=== PATIENT | female | born 1950 | race Two or more races ===

== ENCOUNTER 2018-11-08 11:30 | Inpatient (IN) | payer OTHER ==
[~2018-11-08] VITALS: Ht 166.4 cm; Wt 111.1 kg
[2018-12-01] VITALS (10 sets, daily range): BP systolic 105–130; BP diastolic 52–73
[2018-12-01] MEDS ORDERED: Chloraseptic Spray 20mL Bottle ORAL PRN (07:15)
[2018-12-01] MEDS ORDERED: HYDROcodone/Acetamin 10/325 tab ORAL PRN (07:15)
[2018-12-01] MEDS ORDERED: Hydromorphone 0.5mg/0.5ml inj IVP PRN ×2 (07:15→11:30)
[2018-12-01] MEDS: BuPROPion SR 150mg tab ORAL SCH (09:00)
[2018-12-01] MEDS ORDERED: Thrombin 5000 units TOPIC ONE (09:57)
[2018-12-01] MEDS ORDERED: Bacitracin 50000 Units Vial ONE (09:57)
[2018-12-01] MEDS ORDERED: Bupivacaine w/Epi 0.5% 30ml Vial INJ ONE (09:57)
[2018-12-01] MEDS ORDERED: Heparin 5000 units/ml inj ONE (09:58)
[2018-12-01] MEDS ORDERED: Gelfoam Size TOPIC ONE (10:34)
[2018-12-01] MEDS ORDERED: PROZAC20 MG ORAL (10:36)
[2018-12-01] MEDS ORDERED: SYNTHROID112 MCG ORAL (10:36)
[2018-12-01] MEDS ORDERED: WELLBUTRIN XL150 M1 ORAL (10:36)
[2018-12-01] MEDS ORDERED: LR 1000ml 1,000 ML IVLG SCH (11:26)
[2018-12-01] MEDS ORDERED: Ketorolac 30mg Inj IV PRN ×2 (11:30)
[2018-12-01] MEDS ORDERED: HYDROcodone/Acetamin 7.5/325 tab ORAL PRN (11:30)
[2018-12-01] MEDS ORDERED: Acetaminophen (Non formulary) 100 ML IV ONE (11:30)
[2018-12-01] MEDS ORDERED: Midazolam 2mg/2ml Inj IVP PRN (11:30)
[2018-12-01] MEDS ORDERED: fentaNYL 100 mcg/2 mL IV PRN (11:30)
[2018-12-01] MEDS ORDERED: Atropine Sulfate 0.4mg/ml inj IVP PRN (11:30)
[2018-12-01] MEDS ORDERED: oxyCODONE HCL/Acetaminophen 5/325mg ORAL PRN (11:30)
[2018-12-01] MEDS ORDERED: DiphenhydrAMINE 50mg/ml Inj IVP PRN (11:30)
[2018-12-01] MEDS ORDERED: HYDROcodone/Acetamin 5/325 tab ORAL PRN (11:30)
[2018-12-01] MEDS ORDERED: LORazepam Inj 2mg/ml 1ml IV PRN (11:30)
--- NOTE | 2018-12-01 11:31 | Anethesia Preoperative Eval ---
Anesthesia Pre-op PMH/ROS General Date of Evaluation: Dec 01, 2018 Time of Evaluation: 11:41 Anesthesiologist: Tania ASA Score: ASA 3 Mallampati Score Class I : Soft palate, uvula, fauces, pillars visible Class II: Soft palate, uvula, fauces visible Class III: Soft palate, base of uvula visible Class IV: Only hard plate visible Mallampati Classification: Class II Surgeon: Lilia Diagnosis: Back Pain Surgical Procedure: ALIF L5-S1 Anesthesia History: none Family History: no anesthesia problems Allergies: Coded Allergies: No Known Allergies (Unverified , 12/01/18) Medications: see eMAR Patient NPO?: Yes NPO Date: Nov 30, 2018 NPO Time: 1900 Past Medical History Cardiovascular: Reports: HTN Neurologic/Psychiatric: Reports: depression/anxiety Endocrine: Reports: hypothyroidism Other: obesity - BMI 42 Anesthesia Pre-op Phys. Exam Physician Exam Last Vital Signs Date Time Temp Pulse Resp B/P (MAP) Pulse Ox O2 Delivery O2 Flow Rate FiO2 12/01/18 10:37 Room Air 12/01/18 10:31 97.4 71 18 130/73 (92) 98 Constitutional: NAD Neurologic: CN 2-12 intact Cardiovascular: RRR Respiratory: CTA Gastrointestinal: S/NT/ND Airway Exam Mallampati Score: Class II MO: full ROM: limited Teeth: missing, intact Anesthesia Pre-op A/P Risk Assessment & Plan Assessment: ASA 3 Plan: GA, SED, GlideScope Go Status Change Before Surgery: No Pre-Antibiotics Dru Grams Ancef IV Given Within 1 Hr of Incision: Yes Time Given: 12:01 Chris Marin MD Dec 01, 2018 11:30
[2018-12-01] MEDS ORDERED: Dexamethasone 4mg/ml vial ONE (11:32)
[2018-12-01] MEDS ORDERED: fentaNYL 100 mcg/2 mL IV ONE ×3 (11:32→14:29)
[2018-12-01] MEDS ORDERED: Lidocaine 1% MPF 10mg/ml 5ml ONE (11:32)
[2018-12-01] MEDS ORDERED: Sodium Chloride 10ml vial INJ ONE (11:32)
[2018-12-01] MEDS ORDERED: Lidocaine 1% Plain 30 ml INJ ONE ×2 (11:37→13:31)
[2018-12-01] MEDS ORDERED: Zemuron 50mg/5ml Inj IV ONE (11:41)
--- NOTE | 2018-12-01 11:44 | Pre-Procedure Note/Attestation ---
Pre-Procedure Note/Attestation Complete Prior to Procedure Planned Procedure: not applicable Procedure Narrative: L5/S1 Anterior Lumbar Interbody Fusion Indications for Procedure Pre-Operative Diagnosis: Back pain, Lower extremity radiculapathy, Disk herniation Attestation I attest that I discussed the nature of the procedure; its benefits; risks and complications; and alternatives (and the risks and benefits of such alternatives ), prior to the procedure, with the patient (or the patient's legal associate financial representative). I attest that, if there was a reasonable possibility of needing a blood transfusion, the patient (or the patient's legal associate financial representative) was given the [facility] standardized written summary, pursuant to the Jose Elaine Blood Safety Act ([place] Health and Safety Code # 1645, as amended). I attest that I re-evaluated the patient just prior to the surgery and that there has been no change in the patient's H&P, except as documented below: AN RIVERA M.D. Dec 01, 2018 11:44
[2018-12-01] MEDS ORDERED: Sterile Water Irrig 1000ml IRRIG ONE (12:00)
[2018-12-01] MEDS ORDERED: NS Irrig 1000ml ONE (12:00)
[2018-12-01] MEDS ORDERED: LR 1000ml ONE (12:00)
[2018-12-01] MEDS ORDERED: Propofol 1,000mg/ 100ml btl IV ONE (12:00)
--- NOTE | 2018-12-01 12:23 | Immediate Post-Op Evaluation ---
Immediate Post-Op Evalulation Immediate Post-Op Evalulation Procedure: ALIF L5-S1 Date of Evaluation: Dec 01, 2018 Time of Evaluation: 15:13 IV Fluids: 1000 LR Blood Products: 0 Estimated Blood Loss: 100 Urinary Output: 100 Blood Pressure Systolic: 111 Blood Pressure Diastolic: 59 Pulse Rate: 59 Respiratory Rate: 16 O2 Sat by Pulse Oximetry: 99 Temperature (Fahrenheit): 97.2 Pain Score (1-10): 2 Nausea: No Vomiting: No Complications 0 Patient Status: awake, reacts, patent, extubated, none Hydration Status: adequate Dru Grams Ancef IV Given Within 1 Hr of Incision: Yes Time Given: 12:01 Chris Marin MD Dec 01, 2018 12:23
[2018-12-01] MEDS ORDERED: Glycopyrrolate 0.2mg/ml 1ml Vial ONE (14:16)
[2018-12-01] MEDS ORDERED: Neostigmine 1mg/ml 10ml Inj ONE (14:16)
[2018-12-01] MEDS ORDERED: Bacitracin Oint 15gm Tube TOPIC ONE (14:27)
--- NOTE | 2018-12-01 14:41 | Brief Operative Note ---
Immediate Post Operative Note Operative Note Pre-op Diagnosis: Back pain, Lower extremity radiculapathy, Disk herniation Procedure: L5/S1 ALIF Post-op Diagnosis: same as pre-op Findings: consistent w/pre-op dx studies Surgeon: Lilia Deburrer Machine: Jacklyn Additional Surgeons: Perez Anesthesiologist: Tania Anesthesia: general Specimen: none Complications: none Condition: stable Fluids: see anesthesia Estimated Blood Loss: minimal Drains: none Packing: None Implant(s) used?: Yes - Renovis cage and screws AN RIVERA M.D. Dec 01, 2018 14:41
[2018-12-01] MEDS ORDERED: PCA HYDROmorphone 30mg/30ml Syr IV PRN (15:44)
[2018-12-01] MEDS ORDERED: Rate Change PCA 1 Each MISC PRN (15:45)
--- NOTE | 2018-12-01 15:46 | Diagnostic Imaging Report ---
INDICATION: Pain, intraoperative TECHNIQUE: Intraoperative imaging Fluoroscopy time: 28.7 seconds Total dose: 0.87308 mGym2 Total number of images: 3 COMPARISON: None FINDINGS: 6 intraoperative images demonstrate surgical tool projected anterior to what is presumably the L5 vertebral body. Subsequent images demonstrate placement of anterior fusion hardware and a disc spacer at L5-S1. IMPRESSION: Intraoperative imaging, as described
--- NOTE | 2018-12-01 16:22 | NUR ---
NURSE NOTES: Patient is in bed awake and able to verbalize needs. Stable. Denies pain or SOB. Surgical dressing clean, dry, and intact. Patient oriented to room, call light and unit. Patient encouraged to use call light for assistance, verbalized understanding. Patient is comfortable in bed in locked and lowest position with call light within reach. Will continue to monitor.
[2018-12-01] MEDS: Docusate 100mg cap ORAL SCH (18:00)
--- NOTE | 2018-12-01 18:00 | NUR ---
NURSE NOTES: Patient is asleep. Patient wants to continue sleeping. Held oral meds due to patient's drowsiness. Will continue to monitor.
[2018-12-01] MEDS: PCA shift volume MISC SCH (19:21)
--- NOTE | 2018-12-01 19:38 | NUR ---
HAND-OFF: Report given to Markus ARGUELLO. Patient is stable.
--- NOTE | 2018-12-01 19:40 | NUR ---
NURSE NOTES: Received a report from SAUNDRA Padilla. Pt is asleep but easily aroused by calling name. No acute distress noted. Denies pain at this time. On O2 2L/min NC. Surgical site is clear without any bleeding signs. Son catheter is inserted state and yellowish urine patent without hematuria or sediments. Reeudcate FRONT DESK SUPERVISOR pump usage. Leave call light within reach. Will continue to monitor.
[2018-12-01] MEDS: ceFAZolin sod 1 GM in D5W 55 ML IV SCH (20:17)
[2018-12-02] VITALS: BP 135/70
[2018-12-02] MEDS: ceFAZolin sod 1 GM in D5W 55 ML IV SCH ×2 (03:51→11:25)
[2018-12-02 04:00] VITALS: BP 130/61
[2018-12-02] MEDS: PCA shift volume MISC SCH ×2 (07:29→19:29)
--- NOTE | 2018-12-02 07:30 | NUR ---
HAND-OFF: Report given to SAUNDRA Welch.
[2018-12-02 08:00] VITALS: BP 116/49
--- NOTE | 2018-12-02 08:00 | NUR ---
NURSE NOTES: Received report from Markus ARGUELLO, pt a/a/o x4 laying in bed with no signs of distress or other issues at this time, surgical dressing dry and intact. Son cath in place draining well. per Dr. James to remove Son cath tomorrow 12/03/18 at 06:00. RN will carry on order. IV ont her left MAJOR gauge#18 running D5 1/2 NS +20mEq@100ml/hr and OFFBEARER with Dilaudid. pt is NPO except ice chips and meads. partner at bed side.call light within reach. bed in lowest position. side rales up x2. I will f/u as needed.
[2018-12-02] MEDS: BuPROPion SR 150mg tab ORAL SCH (09:04)
[2018-12-02] MEDS: Docusate 100mg cap ORAL SCH ×2 (09:04→17:29)
[2018-12-02] MEDS: Dronabinol 2.5mg Cap ORAL SCH ×2 (09:04→20:08)
--- NOTE | 2018-12-02 09:38 | 48 Hour Post Anesthesia Eval ---
Post Anesthesia Evaluation Procedure: ALIF L5-S1 Date of Evaluation: Dec 02, 2018 Time of Evaluation: 09:37 Blood Pressure Systolic: 132 0: 76 Pulse Rate: 68 Respiratory Rate: 20 Temperature (Fahrenheit): 97.6 O2 Sat by Pulse Oximetry: 98 Airway: patent Nausea: No Vomiting: No Pain Intensity: 3 Hydration Status: adequate Cardiopulmonary Status: stable Mental Status/LOC: patient returned to baseline Follow-up Care/Observations: n/a Post-Anesthesia Complications: none Follow-up care needed: N/A Ney Ramsey MD Dec 02, 2018 09:38
--- NOTE | 2018-12-02 11:00 | Progress Note ---
DATE: 12/02/2018 ACUTE PAIN MANAGEMENT PHYSICIAN PROGRESS NOTE MEDICATIONS: Medication administration record reviewed. Medications include Tylenol, Mylanta, Wellbutrin, Catapres, IV fluids, Benadryl, Colace, Pepcid, Prozac, [place], Dilaudid, Synthroid, Ativan, Dilaudid RADIOLOGY CT TECHNOLOGIST, Narcan, Zofran, and Chloraseptic spray. LABORATORY STUDIES: No interval laboratory studies. OBJECTIVE: Afebrile, pulse 88, respirations 20, blood pressure 130/61, and oxygen saturation 96% on nasal cannula oxygen. I spent over 60 minutes in consultation today. I discussed the case with the overnight nurse, RN, Markus, along with the day nurse, RN, Rebekah. I discussed the case with the surgeon, Dr. Rodrigues, and the physical therapist, Kylah. I saw the patient at the bedside with her , Florecita. The patient has been doing exceptionally well. She had absolutely no problems with breathing or respiratory compromise overnight. She has been using her Dilaudid RADIOLOGY CT TECHNOLOGIST adequately for adequate analgesia. She has been able to roll in the bed from [id number] while tolerating the pain. I did encourage her to be a little more generous with the RADIOLOGY CT TECHNOLOGIST button to make her first physical therapy session easier this morning. We spoke the patient's CBD usage and I have decided to place her on Marinol 2.5 mg every 12 hours at 9 a.m. and 9 p.m. for better baseline analgesia, as the patient does state that she used the tincture or vape multiple times throughout the day. I did provide the , Florecita, a prescription for 50 tablets of [place] 10/325. [place], which have been working well for the patient preoperatively. The patient states that Flexeril did not have much effect and the patient already has Flexeril at home in case she decides to re-challenge with the cyclobenzaprine muscle relaxant. I will continue the breakthrough p.r.n. dose of Dilaudid for rescue severe pain episodes. We still await improvement in her bowel function after ALIF, anterior abdominal surgery. She has minimal bowel sounds. She is not burping and certainly does not have flatus at this time. I would continue her IV fluids. I have 100 mL an hour. She has a Son catheter in place and the urine color is only mildly concentrated. I would be wary fluid overload in this morbidly obese 67-year-old woman at this time; so, I will not increase her IV fluid rate. The patient is using ice chips sporadically. Once the patient does start passing flatus, we will trial her on clear liquid diet for tolerability. The patient's , Florecita, is extremely helpful and supportive. They have already prepared their home for the patient's recovery. I spoke with the physical therapist to please leave a front wheeled walker at the bedside. So, the patient can ambulate with nursing staff once cleared by physical therapy. The patient and her have several large dogs and 2 grandchildren ages 3 and 5. I strongly encouraged the patient to be certain not to sleep with her dogs and not to lift greater than approximately 1 gallon of milk in terms of weight, to avoid injury to her recent spine fusion. I demonstrated proper use of incentive spirometer at the bedside to encourage good pulmonary toilet. The patient promises to be compliant. Sequential compression devices remain in place for DVT prophylaxis. We will see how the patient progresses with physical therapy and see how her bowel function returns. Dr. Rodrigues was already placed the patient on Colace b.i.d. She will remain on Pepcid b.i.d. for GI ulcer prophylaxis. Vasu Monge JOB#: [id number] CC:
[2018-12-02] MEDS ORDERED: Tubing IV Secondary IV ONE (11:06)
[2018-12-02 12:00] VITALS: BP 112/49
--- NOTE | 2018-12-02 13:26 | NUR ---
PT Notes: Eval lauren received. Performed eval. Patient was able to get in/oob and walk using FWW while wearing lumbar brace. c/o slight light headedness and returned safely to bed. Patient will benefit from skilled PT intervention to improve functional activities
[2018-12-02 16:00] VITALS: BP 108/57
--- NOTE | 2018-12-02 18:31 | Consultation ---
DATE OF CONSULTATION: 12/01/2018 CONSULTING PHYSICIAN: Rafy James M.D. REFERRING PHYSICIANS: 1. Fernando Rodrigues M.D. 2. Harry Villasenor M.D. REASON FOR CONSULTATION: Acute pain consult. HISTORY OF PRESENT ILLNESS: Dear Dr. Rodrigues and Dr. Villasenor, Thank you kindly for consulting me to evaluate and render an opinion as to how to proceed in the management of the patient's acute postoperative lumbar spine pain after her anterior lumbar spine fusion surgery today. The patient has injured her spine after a slip and fall accident. She failed conservative treatment and required anterior lumbar interbody fusion spine repair today. You consulted me to help with her postoperative management and pain control. I saw the patient at the bedside and performed a detailed history and physical examination. I discussed the case with the hospital pharmacist along with yourselves. I performed a detailed history and physical examination. I reviewed multiple records from the patient's hospital chart including multiple preoperative records from Dr. Rafy Deng dated October 23, 2018 along with diagnostic testing. I reviewed multiple records from today's date of surgery at [facility], December 01, 2018, including records from the surgery suite, the nursing and pharmacy departments. PAST MEDICAL HISTORY: 1. Acute postoperative lumbar spine pain, status post lumbar spine fusion surgery with Dr. Rodrigues in November 2018. 2. Slip and fall accident. 3. Morbid obesity. 4. Hypothyroidism. 5. Anxiety. 6. Ankle surgery. MEDICATIONS: At home, Synthroid 112 mcg daily, Wellbutrin 300 mg daily, Prozac 20 mg daily, and [place] 7.5 mg tablets half a tablet b.i.d. p.r.n. The patient has trialed Flexeril, which provided minimal benefit. SOCIAL HISTORY: The patient lives with her life, Pat. She denies tobacco usage. She denies alcohol usage. She does use a CBD tincture. REVIEW OF SYSTEMS: Per Dr. Rafy Deng. FAMILY HISTORY: Diabetes, hypertension, and hyperlipidemia. ALLERGIES: No known drug allergies. PHYSICAL EXAMINATION: VITAL SIGNS: Age 67, height 5 feet 5 inches, weight 247 pounds, body-mass index 40. Afebrile, pulse 73, respirations 13, blood pressure 127/62, and oxygen saturation 97%. HEENT: No Pitts's palsy. No Sally syndrome. Extraocular muscles intact. NECK: Thick neck. HEENT. CHEST: Barrel chested. Bibasilar crackles likely secondary to postoperative atelectasis and preoperative morbid obesity. HEART: Decreased heart sounds secondary to obesity. ABDOMEN: Absent bowel sounds, obese, tender by incision area. No rebound or guarding appreciated. NEUROLOGIC: Detailed neurologic and lumbar spine exam per Dr. Rodrigues. Moving all extremities x4. 5/5 dorsiflexion and 5/5 plantar flexion in bilateral lower extremities. GENITOURINARY: Son catheter in place. BREASTS: Deferred to Dr. Deng. GENITOURINARY: Deferred to Dr. Deng. DIAGNOSTIC TESTING: laboratory studies from October 23, 2018 with white count 11, hematocrit 40, platelets 310,000. Sodium 137, potassium 4.9, chloride 102, bicarbonate 27, glucose 83, BUN 13, creatinine 0.8, calcium 9.3. Total protein 7.3. Albumin 4.0. Total bilirubin 0.3. Alkaline phosphatase 52, ALT 15, AST 14. INR 0.9. Hepatitis B and C, and HIV are all negative. Urinalysis negative. Preoperative chest x-ray shows no acute cardiopulmonary disease dated October 23, 2018. A 12-lead EKG shows normal sinus rhythm, ventricular rate 68. No evidence for acute cardiac ischemia. Pulmonary function testing, in the medical record. IMPRESSION: 1. Acute postoperative lumbar spine pain, status post lumbar spine fusion surgery with Dr. Rodrigues in November 2018. 2. Slip and fall accident. 3. Morbid obesity. 4. Hypothyroidism. 5. Anxiety. TREATMENT RECOMMENDATIONS: After speaking with the recovery room nurse, SAUNDRA Chandler, I decided to place the patient on Dilaudid STOCKBROKING DEALER. I have set up a very conservative dosing with 0.2 mg demand dose, a 12-minute lockout, and 3 mg 4-hour limit. I reviewed these orders with the pharmacist, Peewee Forrest, to ensure proper dosing. Due to the patient's significant obesity, I would be very concerned regarding possible respiratory obstruction and would recommend continuous pulse oximetry overnight along with supplemental oxygen. For DVT prophylaxis, sequential compression pneumatic devices have been ordered. Incentive spirometer will be ordered to encourage good pulmonary toilet. I have added breakthrough doses of pain medications to include Dilaudid 0.5 mg intravenously every three hours p.r.n. for [id number] pain. The patient has tolerated [place] preoperatively, so I have ordered 10 mg dose of [place] orally every three hours p.r.n. for mild pain. I will restart the patient's mood-stabilizing agents of Prozac and Wellbutrin. I have also added p.r.n. dose of Ativan 0.5 mg orally q.6 hours in case of anxiety or spasm episodes. I would avoid the class of muscle relaxants at this time, the patient states that Flexeril has not worked in the past, and I would try to avoid multiple classes of sedating agents, which may worsen respiratory depression. I will place the patient on Pepcid 20 mg b.i.d. for GI ulcer prophylaxis. I have ordered p.r.n. dose of Mylanta 30 mL p.r.n. q.6 hours in case of any GERD symptom exacerbation. I have ordered Zofran 4 mg intravenously every 4 hours p.r.n. as a rescue antiemetic. I have ordered Benadryl 25 mg orally every 6 hours in case of any itching complaints. Chloraseptic spray has been ordered to the bedside in case of any sore throat complaints postoperatively. Tylenol has been ordered for any fevers. I have ordered p.r.n. dose of clonidine 0.1 mg orally every 8 hours in case of systolic blood pressure readings greater than 160 mmHg. Rafy James M.D. DR: CARIE JOB#: [id number] [id number]
--- NOTE | 2018-12-02 19:30 | NUR ---
HAND-OFF: Report given to Bang ARGUELLO. Patient in stable condition.
--- NOTE | 2018-12-02 19:35 | NUR ---
NURSE NOTES: Report taken from SAUNDRA Joseph. Patient is awake and responsive in bed, A&Ox4. No signs of distress on room air. Having some pain, primarily with movement, states that she feels sore with some tenderness, 4/10. Instructed patient on use of VISUAL BASIC .NET DEVELOPER for pain relief. Surgical site c/d/i, no signs of bleeding, no further skin issues. IV site c/d/i and running D5NS+20KCl at 100mls/hr. Son c/d/i and draining yellow urine, continue to monitor output. Patient still NPO. Bed in lowest position, call light within reach.
--- NOTE | 2018-12-02 19:55 | General Surgery Progress Note ---
General Surgery-Progress Note Subjective Reason for Consult POD 1 s/p L5/S1 ALIF Procedure Performed L5/S1 ALIF Symptoms: improved Additional Comments Patient without flatus yet Objective Last 24 Hour Vital Signs Date Time Temp Pulse Resp B/P (MAP) Pulse Ox O2 Delivery O2 Flow Rate FiO2 12/02/18 16:00 19 12/02/18 16:00 97.4 75 19 108/57 (74) 98 12/02/18 12:00 97.2 71 17 112/49 (70) 97 12/02/18 12:00 20 12/02/18 09:38 68 20 98 12/02/18 09:00 Room Air 12/02/18 08:00 20 12/02/18 08:00 98.1 82 18 116/49 (71) 98 12/02/18 04:00 20 12/02/18 04:00 98.1 88 20 130/61 (84) 96 12/02/18 00:00 20 12/02/18 00:00 98.6 84 24 135/70 (91) 95 12/01/18 21:00 Nasal Cannula 2.0 12/01/18 20:00 20 12/01/18 20:00 98.7 84 18 105/57 (73) 95 I&O Intake and Output 12/01/18 12/02/18 19:00 07:00 Intake Total 1100 ml 1210 ml Output Total 200 ml 600 ml Balance 900 ml 610 ml Intake IV Total 1100 ml 1210 ml Output Urine Total 100 ml 600 ml Estimated Blood Loss 100 ml # Voids 1 Dressing: dry Drains: none Abdomen: soft, non-distended Extremities: no edema, no tenderness, no cyanosis Assessment Post-op Diagnosis Patient doing well Additional Comments Cont. Physical therapy. ADAT once patient passes flatus Cont pain management. D/C AN Juarez AM, M.D. Dec 02, 2018 19:55
[2018-12-02 20:00] VITALS: BP 122/55
--- NOTE | 2018-12-02 20:30 | Consultation ---
DATE OF CONSULTATION: 12/01/2018 REASON FOR CONSULTATION: Evaluation for a spine exposure. HISTORY OF PRESENT ILLNESS: This is a 67-year-old female, who was involved in an accident. Subsequently, she was found to have spine disease and is to undergo spine anterior retroperitoneal and interbody fusion L5-S1. PAST MEDICAL HISTORY: None. PAST SURGICAL HISTORY: None. MEDICATION LIST: Reviewed. ALLERGIES: None. SOCIAL HISTORY: No smoking, drinking, or drug use. PHYSICAL EXAMINATION: VITAL SIGNS: Blood pressure is 110/60, pulse is 80, and respirations 18. CARDIOVASCULAR: Normal S1, S2. No murmurs, gallops, or rubs. LUNGS: Clear. ABDOMEN: Soft. EXTREMITIES: Warm. IMPRESSION: Spine disease. RECOMMENDATIONS: We will proceed with anterior retroperitoneal exposure interbody fusion L5-S1. Risks, benefits, complications, and alternatives have been explained to the patient. Consent obtained. Risks and benefits have been explained to the patient included, but not limited to bleeding, infection, damage to the lungs, damage to ureter, wound infection, wound dehiscence, DVT, PE, loss of limb, loss of life, high-risk nature of the operation were fully explained and stressed to the patient. All questions were answered. Jose Alejandro Todd MD DR: SYDNEE JOB#: [id number] CC:
[2018-12-02] MEDS: LORazepam 0.5mg tab ORAL PRN (22:29)
--- NOTE | 2018-12-02 22:45 | Operative Note - Dictated ---
DATE OF OPERATION: 12/01/2018 PREOPERATIVE DIAGNOSIS: Spine disease. POSTOPERATIVE DIAGNOSIS: Spine disease. PROCEDURES: 1. Anterior retrograde exposure interbody fusion L5-S1. 2. Modifier 22 because of obesity. 3. Ligation of middle sacral vessels. SURGEON: Jose Alejandro Todd M.D. CO-SURGEON: Harry Villasenor M.D. ANESTHESIA: General. EBL: 200 mL. OPERATIVE NOTE: Risks, benefits, complications, alternatives, and high-risk nature of the operation were fully explained to the patient. Consent obtained. Risks and benefits have been explained to the patient and the family including but not limited to bleeding, infection, damage to bowel, damage to ureter, wound infection, wound dehiscence, DVT, PE, loss of limb, loss of life, and high risk nature of the operation fully explained and stressed to the patient. All questions were answered. OPERATIVE TECHNIQUE: The patient was placed in the supine position, prepped and draped in usual sterile fashion. A time-out was called. Antibiotics was given. The patient was obese which added at least 20% to the length of the operation because of the extra tissue that had to be dissected. I made a 10-cm incision in the left lower quadrant in horizontal fashion. Incision was taken down to subcutaneous tissue which was then opened using electrocautery. Left anterior rectus sheath was opened in the direction of the wound. The left rectus muscle was mobilized superiorly and inferiorly. Posterior rectus sheath was mobilized and was cut about 2 cm. Bookwalter retractor was placed retracting the bowel contents to the right and left rectus muscle to the left. I dissected the left common iliac artery and vein external iliac artery and vein. The middle sacral vessels were ligated using titanium clips. Exposure for L5-S1 was obtained between the right and left common iliac artery and vein. We proceeded with the diskectomy and the placement of a new cage. Please refer to Dr. Villasenor's dictations for the details of that operation. After all the x-rays were satisfactory and read by Dr. Villasenor, needle count and sponge count was correct. The wound was irrigated using antibiotic solution. Anterior rectus sheath was closed using #1 Vicryl suture in a running fashion. The fatty layer of the abdomen was reapproximated using #1 Vicryl suture in interrupted fashion x5. The skin was closed using 2-0 Vicryl suture for the subcutaneous and roslyn for the skin. The patient tolerated the procedure well. Jose Alejandro Todd MD DR: SYDNEE JOB#: [id number] CC:
[2018-12-03] VITALS: BP 115/60
[2018-12-03 04:00] VITALS: BP 140/71
[2018-12-03] MEDS: PCA shift volume MISC SCH (07:06)
--- NOTE | 2018-12-03 07:40 | NUR ---
HAND-OFF: Report given to SAUNDRA Roman. Patient is awake and in bed, VS stable. Son removed.
[2018-12-03 08:00] VITALS: BP 105/51
[2018-12-03] MEDS ORDERED: HYDROcodone/Acetamin 5/325 tab ORAL PRN (08:33)
[2018-12-03] MEDS: Docusate 100mg cap ORAL SCH ×2 (09:13→17:15)
[2018-12-03] MEDS: BuPROPion SR 150mg tab ORAL SCH (09:14)
[2018-12-03] MEDS: Dronabinol 2.5mg Cap ORAL SCH ×2 (09:51→21:46)
[2018-12-03] MEDS ORDERED: Dronabinol 2.5mg Cap ORAL SCH (10:00)
[2018-12-03 12:00] VITALS: BP 108/45
[2018-12-03] MEDS: Hydromorphone 0.5mg/0.5ml inj SUBQ PRN ×2 (12:41→18:23)
--- NOTE | 2018-12-03 15:30 | Progress Note ---
DATE: 12/03/2018 ACUTE PAIN MANAGEMENT PHYSICIAN PROGRESS NOTE MEDICATIONS: Medication administration record reviewed. Medications include IV fluids, Colace, Pepcid, Prozac, Wellbutrin, Synthroid, Marinol. P.r.n. medications include Dilaudid NURSING EDUCATOR, Benadryl, Chloraseptic spray, Catapres, Mylanta, Ativan, [place], Narcan, Tylenol, Zofran. LABORATORY STUDIES: No interval laboratory studies. OBJECTIVE: VITAL SIGNS: Afebrile, pulse 70, respirations 18, blood pressure 140/71, oxygen saturation 98% on room air. I spent over 60 minutes in consultation today. I discussed the case with the surgeon, Dr. Rodrigues. I spoke with the overnight nurse RN, Bang and saw the patient at the bedside this morning with orthopedic day nurse RN, Rebekah, along with the patient's , Pat. Yesterday, the patient made extraordinary strides with physical therapy. She ambulating greater than 300 feet. Today, she is feeling the consequences of her overactivity with increased pain. I did encourage continued usage of the Dilaudid. She has been having worsening nausea symptoms ever since she started taking [place] on an empty stomach yesterday. I have asked the nurse to hold off on using [place] for now as the patient still is not yet passing flatus and remains NPO. I have switched the breakthrough Dilaudid injections to subcutaneous, which I will encourage. The patient is having caffeine-withdrawal headaches. She normally drinks two cups of coffee daily and has not had any coffee in three days. I will dose the patient with Fioricet shortly. I spoke with the hospital pharmacist, Lon, and Phenergan suppositories available I have ordered 25 mg rectal suppository of Phenergan to help with her nausea symptoms. In this 67-year-old woman, I would hold off on the use of scopolamine for now. The patient has requested to re-dose her antidepressant medications. I will continue p.r.n. Ativan in case anxiety episode seem to develop. She has been responding well to the Marinol, which I will continue q.12 hours. I have also did timing of the dosing to resume at 10 a.m. this morning so that the Phenergan and Fioricet medications have time to effect, without risking over sedation. The patient is breathing comfortably on room air. She denies any shortness of breath or chest pain. She is burping, but is not passing flatus. I have increased the IV fluid rate to 125 mL an hour for better intravascular rehydration. Examination of the urine in the Son catheter bag, which was removed earlier this morning, showed that the urine concentration did not appear to be too concentrated. The patient's , Pat already had my prescription for [place] filled from the outpatient pharmacy yesterday. We will see how the patient advances with mandaen of bowel function and ambulation, including stairs-training, as they suggested. Rafy James M.D. DR: CARIE JOB#: [id number] CC:
[2018-12-03 16:00] VITALS: BP 130/51
--- NOTE | 2018-12-03 19:10 | NUR ---
CASE MANAGEMENT: INITIAL REVIEW 12/01/2018 67 YO F [facility] SI:BACK PAIN. T 97.4 HR 71 RR 18 B/P 130/73 SATS 98% ON RA NO LABS TODAY IS:OR MEDS PLAN OF CARE: DATE OF OPERATION: 12/01/2018 PREOPERATIVE DIAGNOSIS: Spine disease. POSTOPERATIVE DIAGNOSIS: Spine disease. PROCEDURES: 1. Anterior retrograde exposure interbody fusion L5-S1. 2. Modifier 22 because of obesity. 3. Ligation of middle sacral vessels. 12/02/2018 SI:BACK PAIN. T 97.8.1 HR 82 RR 20 B/P 116/49 SATS 98% ON RA NO LABS TODAY IS:IVF @ 125 mL/HR PEPCID PO BID MARINOL PO Q12H PLAN OF CARE: POST OP CARE 12/03/2018 SI:BACK PAIN. T 98 HR 86 RR 18 B/P 108/45 SATS 97% ON RA NO LABS TODAY IS:IVF @ 125 mL/HR PEPCID PO BID MARINOL PO Q12H PLAN OF CARE: POST OP CARE DME Addendum: 12/05/18 at 1033 by Chasity Kang CM INTERQUAL MET
--- NOTE | 2018-12-03 19:27 | NUR ---
HAND-OFF: Report given to Bang ARGUELLO, pt in stable condition. RN endorsed to incoming nursing that pt pass flatus, advanced diet to full liquids. incoming nursing is also aware that pt will need a raised toilet seat before she goes home. partner at bedside and she stated that they would like to leave tomorrow morning around 11:00. I will f/u as needed.
--- NOTE | 2018-12-03 19:42 | NUR ---
NURSE NOTES: Report taken from SAUNDRA Welch. Patient is awake and in bed, partner at bedside, A&Ox4. No signs of distress on room air. Minor complaint of pain/soreness through low back with some radiating to incision site, 09/27. No long on AGRICULTURAL CONSULTANT. Patient is voiding post hoyos removal. Incision site c/d/i, order for change in the AM. IV site c/d/i and running D5NS+20KCl at 125 mls/hr. D/C order in, patient would like to go home around 1100 12/04. Bed in lowest position, call light within reach.
[2018-12-03 21:00] VITALS: BP 135/61
[2018-12-03] MEDS: LORazepam 0.5mg tab ORAL PRN (23:32)
[2018-12-04] VITALS: BP 131/61
[2018-12-04] MEDS ORDERED: Milk of Magnesia 30ml Ud ORAL PRN
--- NOTE | 2018-12-04 03:00 | Discharge Summary ---
DATE OF ADMISSION: 12/01/2018 DATE OF DISCHARGE: 12/03/2018 ADMITTING PHYSICIAN AND SURGEON: Chapo Rodrigues M.D. DRUM REEL CUTTER SURGEON: Harry Villasenor M.D. CONSULTING PHYSICIAN: Rafy James M.D., pain management. ADMITTING DIAGNOSIS: Lumbar spine disk herniation. POSTOPERATIVE DIAGNOSIS: Lumbar spine disk herniation. HOSPITAL COURSE: The patient was admitted on 12/01/2018 for elective lumbar spine fusion surgery via the anterior approach for anterior lumbar interbody fusion surgery. The patient underwent the surgical procedure without incident and was transferred from the operating room to the recovery room in stable condition. The patient did well in the recovery room and was transferred to the orthopedic floor without problems. Serial monitoring was performed. The patient was advanced with her diet and with ambulation during her recovery. Pain control was adequately managed. The patient had quaker of bowel function with positive flatus and advancing diet without difficulties. The patient ambulated well with physical therapy and was provided a front-wheel walker for home usage. The patient also did well with stairs training. There were no cardiopulmonary complications and the patient will discharge to home in the care of her on postop day #[address] Villasenor's surgical clinic in 3 to 4 days. There were no complications. Rafy James M.D. DR: ALESSANDRO JOB#: [id number] CC:
--- NOTE | 2018-12-04 03:15 | Progress Note ---
DATE: 12/04/2018 ACUTE PAIN MANAGEMENT PHYSICIAN PROGRESS NOTE MEDICATIONS: Medication administration record reviewed. Medications include Colace, Pepcid, Prozac, Wellbutrin, Synthroid, Marinol, IV fluids. As needed medications include Benadryl, Chloraseptic spray, Catapres, Mylanta, Ativan, Tylenol, Zofran, Fioricet, Dilaudid, Phenergan suppository, [place], milk of magnesia. LABORATORY STUDIES: No interval laboratory studies. OBJECTIVE: Vital signs within normal limits. Afebrile. Pulse 86, respirations 18, blood pressure 135/61, oxygen saturation 96% on room air. I spent over 60 minutes in consultation over the past 24 hours. I did discuss the case with drug safety assistant surgeon, Dr. Villasenor. I had multiple discussions with the nurse, Rebekah along with the night nurse, RNBang. Earlier yesterday morning when the patient was very uncomfortable with caffeine-withdrawal headaches and nausea, the patient was pessimistic with her recovery. However, after caffeine was replaced with Fioricet tablets and the dosing with Phenergan suppository to relieve her nausea symptoms, the patient's condition became markedly improved. The patient also seems to have some anxiety, which quickly abated with her improved symptoms, and the support of her , the patient continued to increase her ambulation and even did stairs-training with the physical therapist. The patient has been ambulating extremely well. The patient has been using a front wheel walker, so a front wheel walker was dispensed for home usage. The patient's nausea symptoms resolved and she began passing flatus. She tolerated a clear liquid diet for dinner and I will advance her to full liquids for breakfast this morning. The patient feels comfortable to adequately hydrate herself with oral intake. Therefore, I will Hep-Lock her IV fluids to make moving in and out of bed easier. The patient is already able to move in and out of bed independently as she walked to the restroom with a front wheel walker to urinate. She has been voiding well after the Son catheter was removed. The patient denies any abdominal bloating symptoms. Her pain has been well controlled on her scheduled q.12 h. Marinol. I trialed off of the SIGNAL MECHANIC in the afternoon and she has been tolerating her pain medication, just on the p.r.n. pain medications for breakthrough pain along with the scheduled Marinol. The patient has been compliant using her incentive spirometer. She is afebrile and shows no fevers suggesting pulmonary atelectasis postoperatively. The patient will continue with sequential compression pneumatic devices in place while here in the hospital. The patient has been ambulating frequently for DVT prophylaxis as well from a mechanical standpoint. The patient's has readied her home with expectations that the patient will be discharged to home later today. The patient would like to revisit with physical therapy staff in the morning session prior to discharging home. At this point, I would expect a discharge to home as the patient is doing very well. Her deep spinal pains have markedly improved and her pain primarily is the incisional pain. The patient is very pleased with the outcome. She seems very motivated for a speedy recovery. The patient's already had a local pharmacy filled the prescription for [place], which I provided yesterday. The patient will continue on her at home ad-adam. Rafy James M.D. DR: Pete JOB#: [id number] CC:
[2018-12-04] MEDS: Hydromorphone 0.5mg/0.5ml inj SUBQ PRN ×2 (03:23→07:54)
[2018-12-04 04:00] VITALS: BP 129/65
--- NOTE | 2018-12-04 07:15 | NUR ---
HAND-OFF: Report given to SAUNDRA Padilla. Patient awake and ambulating her room. VS stable, awaiting D/C order.
--- NOTE | 2018-12-04 07:30 | NUR ---
NURSE NOTES: Patient is in bed awake and able to verbalize needs. Patient is stable. Denies SOB. Patient complains of 7/10 pain and asks for pain medicine, will administer pain medication as ordered. Patient is encouraged to use call light for assistance, verbalized understanding. Patient is in bed in locked position with call light within reach. WIll continue to monitor.
[2018-12-04 08:00] VITALS: BP 118/68
[2018-12-04] MEDS ORDERED: Sennosides 8.6mg tab ORAL SCH ×2 (09:00→09:12)
[2018-12-04] MEDS: BuPROPion SR 150mg tab ORAL SCH (09:23)
[2018-12-04] MEDS: Dronabinol 2.5mg Cap ORAL SCH (09:23)
[2018-12-04] MEDS: Docusate 100mg cap ORAL SCH (09:23)
--- NOTE | 2018-12-04 11:20 | NUR ---
NURSE NOTES: Patient discharged home as ordered. Stable. Denies pain or SOB. Thorough discharge instructions given to patient by RN. Patient verbalized understanding. All belongings and prescriptions with Pat. Patient has dressing change supplies and raised toilet seat. Skin is clean, dry, and intact. Surgical dressing clean,dry, and intact. No IV access. Patient assisted into private vehicle by RN without incident.
== END 2018-12-04 11:15 | disposition home or self-care (01) | DRG 460 ==
LOC: EDSTATUS 11-15 07:30 → SDSOVERFLO 12-01 09:46 → 3E 12-01 16:22
PROC: 0SG30A0 Fusion of Lumbosacral Joint with Interbody Fusion Device, Anterior Approach, Anterior Column, Open Approach (ICD-10-PCS; principal; 2018-12-01 11:30)
PROC: 4A11X4G Monitoring of Peripheral Nervous Electrical Activity, Intraoperative, External Approach (ICD-10-PCS; principal; 2018-12-01 11:30)
PROC: 0ST40ZZ Resection of Lumbosacral Disc, Open Approach (ICD-10-PCS; principal; 2018-12-01 11:30)
DX: M51.17 Intervertebral disc disorders with radiculopathy, lumbosacral region (principal); Z68.41 Body mass index [BMI] 40.0-44.9, adult; E66.01 Morbid (severe) obesity due to excess calories; E03.9 Hypothyroidism, unspecified; F41.9 Anxiety disorder, unspecified; G89.18 Other acute postprocedural pain
CPT/HCPCS: 36415; 72020; 76000; 86850; 86900; 86901; 86920; 87081; 94003; 94150; J2405; J2710